=== PATIENT | male | born 1975 | race Two or more races ===

== ENCOUNTER → 2016-11-04 | Outpatient (CLI) | payer OTHER ==
--- NOTE | 2016-11-04 15:09 | RAD ---
EXAM: Right tibia/fibula 2 views. HISTORY: Fall with right leg pain. COMPARISON: None. FINDINGS: No fractures are identified. The joint spaces and alignment of the knee and ankle appear maintained. There is soft tissue swelling along the proximal dyer anteriorly. IMPRESSION: 1. Soft tissue swelling. No fracture.
== END | disposition home or self-care (01) ==
LOC: RAD 10:39
PROVIDERS: ATTEND Family Medicine
DX: S80.11XA Contusion of right lower leg, initial encounter (principal); W19.XXXA Unspecified fall, initial encounter; Y93.89 Activity, other specified; Y92.89 Other specified places as the place of occurrence of the external cause; Y99.8 Other external cause status
CPT/HCPCS: 73590